=== PATIENT | female | born 1995 | race Caucasian/White ===

== ENCOUNTER 2018-09-29 09:44 | Emergency (ER) | payer MEDICAID ==
[~2018-09-29] VITALS: Ht 147.3 cm; Wt 88.8 kg
[~2018-09-29 09:44] MED LIST: BACDS PO; CIP500T PO; HYDR-4383 PO; MACROBID PO; NITR-60 PO; NITR100C6 PO; NO HOME MEDS; PHEN-716 PO; PHEN-786 PO; RIFA300C4 PO; ZOF4T PO
[2018-09-29 09:57] VITALS: BP 136/77
[2018-09-29] MEDS ORDERED: HYDROcodone/acetaminophen 10/325mg tab PO ONE (12:45)
[2018-09-29] MEDS ORDERED: HYDR-3965 PO (12:51)
== END 2018-09-29 14:11 | disposition home or self-care (01) ==
LOC: ER 09:44
DX: S62.304A Unspecified fracture of fourth metacarpal bone, right hand, initial encounter for closed fracture (principal); R07.81 Pleurodynia; M25.511 Pain in right shoulder; Z98.890 Other specified postprocedural states; Z91.040 Latex allergy status; Z88.1 Allergy status to other antibiotic agents; Z88.8 Allergy status to other drugs, medicaments and biological substances; Z79.2 Long term (current) use of antibiotics; Z79.899 Other long term (current) drug therapy; W18.39XA Other fall on same level, initial encounter; Y93.89 Activity, other specified; Y92.89 Other specified places as the place of occurrence of the external cause; Y99.8 Other external cause status
CPT/HCPCS: 29125; 73030; 73110; 99283; 99284

== ENCOUNTER 2018-10-05 21:43 | Emergency (ER) | payer MEDICAID ==
[~2018-10-05] VITALS: Ht 147.3 cm; Wt 89.9 kg
[~2018-10-05 21:43] MED LIST changes: +HYDR-3965 PO
[2018-10-05] MEDS ORDERED: HYDROcodone/acetaminophen 10/325mg tab PO ONE (22:00)
[2018-10-05] MEDS ORDERED: IBUP-1984 PO (22:48)
[2018-10-05] MEDS ORDERED: HYDR-3965 PO (22:48)
[2018-10-05 23:31] VITALS: BP 140/69
== END 2018-10-05 23:36 | disposition home or self-care (01) ==
LOC: ER 21:44
DX: S62.394D Other fracture of fourth metacarpal bone, right hand, subsequent encounter for fracture with routine healing (principal); S60.031D Contusion of right middle finger without damage to nail, subsequent encounter; Z88.8 Allergy status to other drugs, medicaments and biological substances; Z88.1 Allergy status to other antibiotic agents; Z91.040 Latex allergy status; Z79.899 Other long term (current) drug therapy; Z98.890 Other specified postprocedural states; X58.XXXD Exposure to other specified factors, subsequent encounter
CPT/HCPCS: 29125; 99284

== ENCOUNTER 2018-10-17 14:53 | Outpatient (CLI) | payer MEDICAID | END 2018-10-17 16:25 | disposition home or self-care (01) | LOC: ORTHO 14:53 | PROVIDERS: ATTEND Orthopaedic Surgery | DX: S62.394D Other fracture of fourth metacarpal bone, right hand, subsequent encounter for fracture with routine healing (principal); X58.XXXD Exposure to other specified factors, subsequent encounter | CPT/HCPCS: 73130; G0463 ==

== ENCOUNTER 2018-11-14 15:21 | Outpatient (CLI) | payer MEDICAID ==
[~2018-11-14 15:21] MED LIST changes: -HYDR-3965 PO
== END 2018-11-14 16:21 | disposition home or self-care (01) ==
LOC: ORTHO 15:21
PROVIDERS: ATTEND Orthopaedic Surgery
DX: S62.304D Unspecified fracture of fourth metacarpal bone, right hand, subsequent encounter for fracture with routine healing (principal); X58.XXXD Exposure to other specified factors, subsequent encounter
CPT/HCPCS: 73130; G0463

== ENCOUNTER 2019-01-16 14:51 | Outpatient (CLI) | payer MEDICAID | END 2019-01-16 16:00 | disposition home or self-care (01) | LOC: ORTHO 14:51 | PROVIDERS: ATTEND Orthopaedic Surgery | DX: M79.641 Pain in right hand (principal); I10 Essential (primary) hypertension; Z87.81 Personal history of (healed) traumatic fracture | CPT/HCPCS: 73130; G0463 ==

== ENCOUNTER 2019-08-13 18:38 | Emergency (ER) | payer MEDICAID ==
[~2019-08-13] VITALS: Ht 149.9 cm; Wt 86.3 kg
[2019-08-13 19:38] VITALS: BP 152/95
== END 2019-08-13 19:15 | disposition home or self-care (01) ==
LOC: ER 18:39
DX: R50.9 Fever, unspecified (principal); Z20.828 Contact with and (suspected) exposure to other viral communicable diseases; R05 Cough; R06.02 Shortness of breath; Z98.890 Other specified postprocedural states; Z91.040 Latex allergy status; Z88.8 Allergy status to other drugs, medicaments and biological substances; Z88.1 Allergy status to other antibiotic agents; Z79.2 Long term (current) use of antibiotics; Z79.899 Other long term (current) drug therapy
CPT/HCPCS: 99281

== ENCOUNTER 2020-08-07 23:08 | Emergency (ER) | payer MEDICAID ==
[~2020-08-07] VITALS: Ht 149.9 cm; Wt 81.4 kg
[2020-08-07 23:41] LABS: CLARITY,URINE CLOUDY (Clear); COLOR,URINE YELLOW (Yellow); GLUCOSE, URINE 250 mg/dl (Neg); KETONES,URINE NEGATIVE (Neg); LEUKOCYTE ESTERASE ,URINE NEGATIVE (Neg); NITRITES, URINE NEGATIVE (Neg); OCCULT BLOOD,URINE TRACE-INTACT (Neg); PROTEIN,URINE 100 mg/dl (Neg); UROBILINOGEN,URINE 0.2 E.U/dL (0.2-1.0)
[2020-08-07 23:46] LABS: URINE HCG NEGATIVE (NEG)
[2020-08-07 23:49] LABS: BASOPHILS # (AUTO) 0.1 X10'3 (0-0.2); BASOPHILS % (AUTO) 0.6 % (0-1); EOSINOPHILS # (AUTO) 0.1 X10'3 (0-0.9); EOSINOPHILS % (AUTO) 1.2 % (0-6); HEMATOCRIT 40.9 % (35.0-45.0); HEMOGLOBIN 13.9 g/dl (12.0-16.0); LYMPHOCYTES # (AUTO) 1.7 X10'3 (1.1-4.8); LYMPHOCYTES % (AUTO) 15.9 % (21-51); MEAN CORPUSCULAR HEMOGLOBIN 30.1 PG (27.0-31.0); MEAN CORPUSCULAR HGB CONC 34.1 g/dL (33.0-36.5); MEAN CORPUSCULAR VOLUME 88.3 FL (78-98); MEAN PLATELET VOLUME 7.2 FL (7.4-10.4); MONOCYTES # (AUTO) 0.5 X10'3 (0-0.9); MONOCYTES % (AUTO) 4.3 % (2-12); NEUTROPHILS # (AUTO) 8.2 X10'3 (1.8-7.7); PLATELET COUNT 424 X10'3 (140-440); RED BLOOD COUNT 4.63 X10'6 (4.20-5.60); WHITE BLOOD COUNT 10.5 X10'3 (4.5-11.0)
[2020-08-07 23:50] LABS: UA COLLECTION TYPE OTHER
[2020-08-07 23:51] LABS: RBC,URINE 0-2 /HPF (0-2)
[2020-08-07 23:52] LABS: BACTERIA,URINE FEW /HPF (Neg); MUCUS STRANDS MODERATE /LPF (Neg); SQUAMOUS EPITHELIAL CELL,UR NONE SEEN /LPF (FEW); WBC CLUMPS,URINE FEW /HPF (NEGATIVE)
[2020-08-07 23:52] LABS: ALANINE AMINOTRANSFERASE 24 U/L (12-78); ALBUMIN 3.6 G/DL (3.4-5.0); ALBUMIN/GLOBULIN RATIO 0.8 (1.1-1.5); ALKALINE PHOSPHATASE 65 IU/L (46-116); ANION GAP 9 (8-16); ASPARTATE AMINO TRANSFERASE 18 U/L (10-37); BILIRUBIN,TOTAL 0.2 MG/DL (0.1-1.0); BLOOD UREA NITROGEN 16 MG/DL (7-18); BUN/CREATININE RATIO 18.4 (6.6-38.0); CHLORIDE 105 MMOL/L (99-107); CREATININE 0.87 MG/DL (0.40-0.90); GLUCOSE 197 MG/DL (70-104); LIPASE 114 U/L (73-393); POTASSIUM 3.7 MMOL/L (3.5-5.1); SODIUM 140 MMOL/L (135-145); TOTAL PROTEIN 8.4 G/DL (6.4-8.2); eGFR 79 ML/MIN
[2020-08-08 01:15] VITALS: BP 127/72
== END 2020-08-08 01:16 | disposition home or self-care (01) ==
LOC: ER 23:09
DX: R10.30 Lower abdominal pain, unspecified (principal); R11.2 Nausea with vomiting, unspecified; Z87.440 Personal history of urinary (tract) infections; Z98.890 Other specified postprocedural states; Z88.8 Allergy status to other drugs, medicaments and biological substances; Z88.1 Allergy status to other antibiotic agents; Z91.040 Latex allergy status; Z79.2 Long term (current) use of antibiotics; Z79.899 Other long term (current) drug therapy
CPT/HCPCS: 36415; 80053; 81001; 81025; 83690; 85025; 87077; 87088; 87186; 99283

== ENCOUNTER 2022-05-23 14:42 | Emergency (ER) | payer MEDICAID ==
[~2022-05-23] VITALS: Ht 149.9 cm; Wt 81.8 kg
[~2022-05-23 14:42] MED LIST changes: -RIFA300C4 PO; +RIFA300C9 PO
[2022-05-23 14:59] VITALS: BP 167/91
[2022-05-23 15:31] LABS: BASOPHILS # (AUTO) 0.1 X10'3 (0-0.2); BASOPHILS % (AUTO) 0.9 % (0-1); EOSINOPHILS # (AUTO) 0.2 X10'3 (0-0.9); EOSINOPHILS % (AUTO) 2.6 % (0-6); HEMATOCRIT 39.8 % (35.0-45.0); HEMOGLOBIN 13.7 g/dl (12.0-16.0); LYMPHOCYTES # (AUTO) 2.1 X10'3 (1.1-4.8); LYMPHOCYTES % (AUTO) 22.2 % (21-51); MEAN CORPUSCULAR HEMOGLOBIN 31.2 PG (27.0-31.0); MEAN CORPUSCULAR HGB CONC 34.3 g/dL (33.0-36.5); MEAN CORPUSCULAR VOLUME 90.8 FL (78-98); MEAN PLATELET VOLUME 7.5 FL (7.4-10.4); MONOCYTES # (AUTO) 0.4 X10'3 (0-0.9); NEUTROPHILS # (AUTO) 6.5 X10'3 (1.8-7.7); NEUTROPHILS % (AUTO) 70.3 % (42-75); PLATELET COUNT 298 X10'3 (140-440); RED BLOOD COUNT 4.39 X10'6 (4.20-5.60); WHITE BLOOD COUNT 9.3 X10'3 (4.5-11.0)
[2022-05-23 15:43] LABS: ALANINE AMINOTRANSFERASE 27 U/L (12-78); ALBUMIN 3.6 G/DL (3.4-5.0); ALBUMIN/GLOBULIN RATIO 0.8 (1.1-1.5); ALKALINE PHOSPHATASE 78 IU/L (46-116); ANION GAP 17 (8-16); ASPARTATE AMINO TRANSFERASE 25 U/L (10-37); BILIRUBIN,TOTAL 0.2 MG/DL (0.1-1.0); BLOOD UREA NITROGEN 12 MG/DL (7-18); CALCIUM 9.4 MG/DL (8.5-10.1); CHLORIDE 102 MMOL/L (99-107); CREATININE 0.86 MG/DL (0.40-0.90); GLUCOSE 273 MG/DL (70-104); POTASSIUM 3.6 MMOL/L (3.5-5.1); SODIUM 140 MMOL/L (135-145); TOTAL CARBON DIOXIDE 21.4 MMOL/L (24-32); TOTAL PROTEIN 8.2 G/DL (6.4-8.2); eGFR 79 ML/MIN
== END 2022-05-23 22:18 | disposition left against medical advice (07) ==
LOC: ER 14:43
DX: R42 Dizziness and giddiness (principal); Z53.21 Procedure and treatment not carried out due to patient leaving prior to being seen by health care provider
CPT/HCPCS: 36415; 71045; 80053; 83880; 84484; 85025; 93005; 99281

== ENCOUNTER 2022-07-02 15:06 | Emergency (ER) | payer MEDICAID ==
[~2022-07-02] VITALS: Ht 149.9 cm; Wt 79.1 kg
[2022-07-02 15:34] LABS: BASOPHILS # (AUTO) 0.1 X10'3 (0-0.2); BASOPHILS % (AUTO) 0.4 % (0-1); EOSINOPHILS # (AUTO) 0.1 X10'3 (0-0.9); EOSINOPHILS % (AUTO) 0.5 % (0-6); HEMATOCRIT 41.8 % (35.0-45.0); HEMOGLOBIN 14.1 g/dl (12.0-16.0); LYMPHOCYTES # (AUTO) 1.7 X10'3 (1.1-4.8); LYMPHOCYTES % (AUTO) 13.9 % (21-51); MEAN CORPUSCULAR HEMOGLOBIN 30.3 PG (27.0-31.0); MEAN CORPUSCULAR HGB CONC 33.8 g/dL (33.0-36.5); MEAN CORPUSCULAR VOLUME 89.7 FL (78-98); MEAN PLATELET VOLUME 7.2 FL (7.4-10.4); MONOCYTES # (AUTO) 0.4 X10'3 (0-0.9); MONOCYTES % (AUTO) 3.4 % (2-12); NEUTROPHILS # (AUTO) 9.9 X10'3 (1.8-7.7); NEUTROPHILS % (AUTO) 81.8 % (42-75); PLATELET COUNT 396 X10'3 (140-440); RED BLOOD COUNT 4.66 X10'6 (4.20-5.60); RED CELL DISTRIBUTION WIDTH 12.8 % (11.5-14.5); WHITE BLOOD COUNT 12.2 X10'3 (4.5-11.0)
[2022-07-02 16:11] LABS: ALANINE AMINOTRANSFERASE 34 U/L (12-78); ALBUMIN 4.1 G/DL (3.4-5.0); ALBUMIN/GLOBULIN RATIO 0.9 (1.1-1.5); ALKALINE PHOSPHATASE 92 IU/L (46-116); ANION GAP 13 (8-16); ASPARTATE AMINO TRANSFERASE 19 U/L (10-37); BILIRUBIN,TOTAL 0.3 MG/DL (0.1-1.0); BLOOD UREA NITROGEN 17 MG/DL (7-18); BUN/CREATININE RATIO 17.2 (10.0-20.0); CALCIUM 9.4 MG/DL (8.5-10.1); CHLORIDE 101 MMOL/L (99-107); CREATININE 0.99 MG/DL (0.40-0.90); GLUCOSE 128 MG/DL (70-104); MAGNESIUM 1.5 MG/DL (1.5-2.4); POTASSIUM 3.3 MMOL/L (3.5-5.1); SODIUM 136 MMOL/L (135-145); TOTAL CARBON DIOXIDE 22.2 MMOL/L (24-32); TOTAL PROTEIN 8.6 G/DL (6.4-8.2); eGFR 67 ML/MIN
[2022-07-02 18:32] LABS: D-DIMER < 0.19 MG/L FEU (0-0.50)
[2022-07-02] MEDS ORDERED: potassium Cl 20 mEq SR tablet PO ONE (18:55)
[2022-07-02 19:47] VITALS: BP 118/78
== END 2022-07-02 19:50 | disposition home or self-care (01) ==
LOC: ER 15:06
DX: R07.89 Other chest pain (principal); Z91.040 Latex allergy status; Z88.1 Allergy status to other antibiotic agents; Z88.8 Allergy status to other drugs, medicaments and biological substances
CPT/HCPCS: 36415; 71045; 80053; 83735; 83880; 84484; 85025; 85379; 93005; 99285

== ENCOUNTER 2022-07-25 11:56 | Emergency (ER) | payer MEDICAID ==
[~2022-07-25] VITALS: Ht 149.9 cm; Wt 80.5 kg
[2022-07-25 12:03] VITALS: BP 152/80
[2022-07-25] MEDS ORDERED: IBUP-1986 PO (13:12)
== END 2022-07-25 13:41 | disposition home or self-care (01) ==
LOC: ER 11:56
DX: N94.6 Dysmenorrhea, unspecified (principal)
CPT/HCPCS: 99282

== ENCOUNTER 2023-05-05 20:38 | Emergency (ER) | payer MEDICAID ==
[~2023-05-05] VITALS: Ht 149.9 cm; Wt 73.6 kg
[~2023-05-05 20:38] MED LIST changes: +IBUP-1986 PO
[2023-05-05 20:55] VITALS: BP 145/74; PULSE 78; RESP 16; TEMP 98.2; O2SAT 100
[2023-05-05] MEDS: proparacaine 0.5% ophthalmic drops 15ml RIGHTEYE ONE (21:32)
== END 2023-05-05 21:42 | disposition home or self-care (01) ==
LOC: ER 20:39
DX: T15.91XA Foreign body on external eye, part unspecified, right eye, initial encounter (principal); Z98.890 Other specified postprocedural states; Z91.040 Latex allergy status; Z88.1 Allergy status to other antibiotic agents; Z88.8 Allergy status to other drugs, medicaments and biological substances; Z79.899 Other long term (current) drug therapy; Z79.1 Long term (current) use of non-steroidal anti-inflammatories (NSAID); Z79.2 Long term (current) use of antibiotics; W44.8XXA Other foreign body entering into or through a natural orifice, initial encounter; Y93.89 Activity, other specified; Y92.89 Other specified places as the place of occurrence of the external cause; Y99.8 Other external cause status
CPT/HCPCS: 65222; 99284

== ENCOUNTER 2023-05-29 16:46 | Emergency (ER) | payer MEDICAID ==
[~2023-05-29] VITALS: Ht 149.9 cm; Wt 72.4 kg
[2023-05-29 17:03] VITALS: BP 152/82; PULSE 97; RESP 16; TEMP 98.2; O2SAT 100
== END 2023-05-29 18:57 | disposition home or self-care (01) ==
LOC: ER 16:47
DX: M79.605 Pain in left leg (principal); M79.604 Pain in right leg
CPT/HCPCS: 72170; 99283

== ENCOUNTER 2023-06-15 14:06 | Outpatient (CLI) | payer MEDICAID ==
[~2023-06-15 14:06] MED LIST changes: +RIFA300C65 PO; -RIFA300C9 PO
== END 2023-06-15 23:59 | disposition home or self-care (01) ==
LOC: RAD 14:06
PROVIDERS: ATTEND Family Medicine
DX: T71.193A Asphyxiation due to mechanical threat to breathing due to other causes, assault, initial encounter (principal); X58.XXXA Exposure to other specified factors, initial encounter
CPT/HCPCS: 72110

== ENCOUNTER 2023-06-24 07:58 | Outpatient (CLI) | payer MEDICAID ==
[2023-06-24] MEDS ORDERED: GADOTERATE MEGLUMINE 7.5 MMOL/15 ML VIAL IV ONE (15:52)
== END 2023-06-24 23:59 | disposition home or self-care (01) ==
LOC: MRI 07:58
PROVIDERS: ATTEND Student in an Organized Health Care Education/Training Program
DX: R42 Dizziness and giddiness (principal); T71.193A Asphyxiation due to mechanical threat to breathing due to other causes, assault, initial encounter; R41.3 Other amnesia; Y93.89 Activity, other specified; Y92.89 Other specified places as the place of occurrence of the external cause; Y99.8 Other external cause status
CPT/HCPCS: 70553; A9575

== ENCOUNTER 2023-06-29 08:42 | Outpatient (CLI) | payer MEDICAID ==
[2023-06-29] MEDS ORDERED: iohexol 350MG/ML 100ml bottle IV ONE (09:01)
== END 2023-06-29 23:59 | disposition home or self-care (01) ==
LOC: RAD 08:42
PROVIDERS: ATTEND Student in an Organized Health Care Education/Training Program
DX: R42 Dizziness and giddiness (principal)
CPT/HCPCS: 70498; J3490; Q9967

== ENCOUNTER 2025-01-17 09:12 | Emergency (ER) | payer MEDICAID ==
[~2025-01-17] VITALS: Ht 154.9 cm; Wt 61.1 kg
[2025-01-17 10:12] LABS: LEUKOCYTE ESTERASE ,URINE MODERATE (Neg); NITRITES, URINE NEGATIVE (Neg); OCCULT BLOOD,URINE SMALL (Neg)
[2025-01-17 10:22] LABS: MEAN PLATELET VOLUME 7.7 FL (7.4-10.4); RED CELL DISTRIBUTION WIDTH 12.7 % (11.5-14.5)
[2025-01-17 10:26] LABS: UA COLLECTION TYPE NON-SPECIFIED
[2025-01-17 10:27] LABS: SQUAMOUS EPITHELIAL CELL,UR FEW /LPF (FEW)
[2025-01-17 10:36] LABS: CREATININE 2.46 MG/DL (0.40-0.90); TOTAL CARBON DIOXIDE 23.9 MMOL/L (24-32); eCRCL 25 ML/MIN; eGFR 23 ML/MIN
[2025-01-17 11:12] LABS: HCG SERUM QL NEGATIVE
[2025-01-17] MEDS ORDERED: CefTRIAXone 2gm/NS 100ml IVPB 50 ML IV ONE (11:15)
[2025-01-17] MEDS: normal saline 1000ML IV soln IVB ONE (11:36)
[2025-01-17] MEDS: CefTRIAXone 2gm/D5W 50ml BAG 50 ML IV ONE (11:45)
[2025-01-17 11:56] LABS: PRO BRAIN NATRIURETIC PEPTIDE < 30 PG/ML (0-125)
[2025-01-17] MEDS: diatr meglu/diatrizoate 30ml oral sol.-(3 dose) bottle PO SCH (12:00)
--- NOTE | 2025-01-17 12:14 | ELECTROCARDIOGRAPH REPORT ---
[facility] Test Date: 2025-01-17 Test Time: 12:11:16 Pat Name: LOGAN BARRETT Department: [facility]- Patient ID: [id number] Room: Gender: F [employer]: : 1995 Requested By: ELVIRA MCCORMICK Order Number: [id number] Reading MD: Dr. DARNELL Mansfield Measurements Intervals [place] Rate: 98 P: 16 HI: 133 QRS: 71 QRSD: 95 T: 269 QT: 318 QTc: 406 Interpretive Statements Sinus rhythm Borderline repolarization abnormality Electronically Signed On 01-18-2025 16:52:[address] DARNELL Mansfield Please click the below link to view image of tracing.
--- NOTE | 2025-01-17 12:20 | Physician Documentation ---
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 This is accompanied by generalized abdominal pain. The particular palliating or aggravating factors. She had attempted to treat it with the Zofran at home without any success. Secondary, she complains of shortness a breath on exertion, which is new and unusual for her. She states that she has trouble walking 5 ft without Arnold out of breath. This is abnormal for her. She does report some mild chest discomfort. It exacerbated by vomiting. Lastly, she reports generalized headache, not the worst of life. No particular palliating or aggravating factors. Not a thunderclap headache. Did not treat the headache due to nausea or vomiting in the inability to hold down medications. She also reports spinning sensation. No concern for tobacco, alcohol or illicit substances use. Medication Reconciliation Allergies: Coded Allergies: latex (Unverified Allergy, Severe, HIVES, SWELLING, 01/17/25) buprenorphine (Verified Allergy, Unknown, 01/17/25) vancomycin (Unverified Allergy, Unknown, 01/17/25) Scheduled Ciprofloxacin Hcl* (Cipro*), 500 MG PO BID Ibuprofen (Ibuprofen), 1 TAB PO Q8H Nitrofurantoin Monohyd/M-Cryst (Macrobid 100 mg Capsule), 1 CAP PO BID Nitrofurantoin/Nitrofuran Mac (Macrobid 100 Mg Capsule), 100 MG PO BID Nitrofurantoin/Nitrofuran Mac* (Macrobid*), 100 MG PO BID Ondansetron ODT* (Zofran ODT*), 8 MG PO Q6H Phenazopyridine HCl (Pyridium), 1 TAB PO TID Phenazopyridine Hcl (Pyridium tablet), 100 MG PO TIDWM Phenazopyridine Hcl (Pyridium tablet), MG PO PRN, (Reported) Phenazopyridine Hcl (Pyridium tablet), 200 MG PO TIDWM Rifampin (Rifampin), 1 CAP PO BID Sulfamethoxazole/Trimethoprim DS* (Bactrim DS Tab*), 1 TAB PO BID, (Reported) Scheduled PRN Hydrocodone/Acetaminophen ([place] 5-325 Tablet), 1 TABLET PO TID PRN for pain Phenazopyridine Hcl (Pyridium tablet), 2 TAB PO Q8H PRN for pain Miscellaneous Medications Home Med List (No Home Medications), (Reported) Past Medical History Past Medical History: *RENAL/*, UTI Past Surgical History: other Other Past Surgical History: urostomy, vesicostomy, subarachnoid shunt Alcohol Use: None Lives with: Mother Lives In: Home Review of Systems ROS 10 point review of systems was performed and unless noted above in HPI is negative for acute process/complaint. Physical Exam Vital Signs: Temperature: 97.5, Source: Oral, Heart Rate: 107, Respiratory Rate: 16, BP: 107/69, Pulse Oximetry: 99, Weight: 61.100 Oxygen Flow Rate: 0 Physical Exam GENERAL: Awake, alert, oriented, GCS 15, no apparent distress, non-toxic appearing, answers questions, follows commands appropriately. Examined in bed 6. HEENT: Atraumatic, normocephalic, pupils equal, extraocular muscles intact, sclerae anicteric, mucus membranes moist, oropharynx is clear, no stridor. NECK: supple, full active range of motion, trachea midline, no thyromegaly, no lymphadenopathy, no JVD. CARDIOVASCULAR: Tachycardic and regular rate/rhythm, no murmurs/gallops/rubs, Pulses are 2+ in all extremities and symmetric. Capillary refill less than 2 seconds. PULMONARY: Nonlabored, good air movement ,no respiratory distress, speaking in full sentences, clear to auscultation bilaterally, no wheezing, no ronchi, no rales, no accessory muscle use. GASTROINTESTINAL: Soft, upper abdominal tenderness to palpation without guarding or rebound reproducing chief complaint, non-distended, normal active bowel sounds, no organomegaly, no pulsatile masses, no CVA tenderness. NEUROLOGIC: Lucid with normal mental status. Normal facial symmetry. Moves all extremities symmetrically and with purpose. No truncal ataxia. Speech is fluid without evidence of dysarthria or aphasia, no focal deficits appreciated. MUSCULOSKELETAL: There is full range of motion of all extremities. There is no joint pain or joint swelling or joint erythema. There is no muscle pain or tenderness or swelling. EXTREMITIES: warm, well-perfused, no cyanosis, no clubbing, no edema, no acute deformities. Skin: warm, dry, no rashes or lesions, no jaundice, no petechiae orpurpura. No ecchymosis. PSYCHIATRIC: Normal affect, normal insight, normal concentration. Focused exam: [] Progress Results/Orders Results/Orders Orders - PEDRITO MCCORMICK DO Cult Urine + [place] Ct (01/17/25 10:28) ESR (01/17/25 11:14) Saline Lock (01/17/25 11:14) Hs Troponin I W Calculations (01/17/25 13:14) Diatr Meglu/Diatrizoate 30ml (Gastrograf (01/17/25 11:15) Culture Blood (01/17/25 11:31) Lacticsepsis (01/17/25 11:31) Cta Chest Abdomen Pelvis (01/17/25 11:14) Ct Head (01/17/25 12:08) Acetaminophen 1,000mg/100ml Iv (Ofirmev (01/17/25 14:00) Covid19 Binax Poc Result Entry (01/17/25 12:08) Completed Orders - PEDRITO MCCORMICK DO Cbc/Diff (01/17/25 09:54) BMP (01/17/25 09:54) Lipase (01/17/25 09:54) CMP (01/17/25 09:54) Hcg Serum Ql (01/17/25 10:22) Ua W/Microscopic, Cult If Ind (01/17/25 09:55) Normal Saline 1000ml (0.9% Sodium Chlori (01/17/25 11:15) Ceftriaxone 2gm/Ns 100ml Ivpb (Rocephin (01/17/25 11:15) Hs Troponin I W Calculations (01/17/25 11:14) Prochlorperazine Inj (Compazine Inj) (01/17/25 11:15) Ceftriaxone 2gm/D5w 50ml Bag (Rocephin 2 (01/17/25 11:25) Ceftriaxone 2gm/D5w 50ml Bag (Rocephin 2 (01/17/25 11:24) C-Reactive Protein (01/17/25 10:09) MG (01/17/25 10:09) PBNP (01/17/25 10:09) Ondansetron Inj. (Zofran 4mg/2ml Vial) (01/17/25 12:10) Electrocardiogram (01/17/25 ) Morphine 4mg/Ml Inj. (Morphine Inj.) (01/17/25 12:10) Medications Received in ER Medications (Trade) Dose Ordered Sig/[place] Route PRN Reason Start Time Stop Time Status Last Admin Dose Admin (0.9% sodium chloride (NS) 1000ml IV soln) 1,000 ml ONCE ONCE IVB 01/17/25 11:15 01/17/25 11:19 DC 01/17/25 11:36 1,000 ML (Compazine inj) 10 mg ONCE ONCE IV 01/17/25 11:15 01/17/25 11:19 DC 01/17/25 11:35 10 MG Ceftriaxone Sodium/Dextrose 50 ml @ 100 mls/hr ONCE ONCE IV 01/17/25 11:25 01/17/25 11:54 DC 01/17/25 11:45 100 MLS/HR Vital Signs 01/17/25 01/17/25 01/17/25 01/17/25 09:44 10:51 11:01 11:48 Temp 97.3 97.5 97.5 Pulse 117 98 107 Resp 18 16 B/P (MAP) 110/73 107/77 (87) 107/69 (82) Pulse Ox 100 96 99 O2 Flow Rate 0 0 Laboratory Tests Test 01/17/25 09:55 01/17/25 10:09 01/17/25 10:50 01/17/25 11:45 Urine Specimen Description Non-specified Urine Color Yellow Urine Clarity Cloudy Urine pH 6.0 Urine Specific [place] 1.025 Urine Protein 100 H Urine Glucose (UA) Negative Urine Ketones Negative Urine Occult Blood Small Urine Nitrite Negative Urine Bilirubin Small Urine Urobilinogen 0.2 Urine Leukocyte Esterase Moderate H Urine RBC 3-10 Urine WBC Tntc H Urine Squamous Epithelial Cells Few Urine Bacteria 3+ Urine Culture Indicated Indicated Volume Urine Centrifuged 10 ml Urine Comment White Blood Count 11.5 H Red Blood Count 5.86 H Hemoglobin 18.2 *H Hematocrit 52.9 H Mean Corpuscular Volume 90.4 Mean Corpuscular Hemoglobin 31.2 H Mean Corpuscular Hemoglobin Concent 34.5 Red Cell Distribution Width 12.7 Platelet Count 424 Mean Platelet Volume 7.7 Neutrophils (%) (Auto) 73.7 Lymphocytes (%) (Auto) 14.8 L Monocytes (%) (Auto) 6.6 Eosinophils (%) (Auto) 4.7 Basophils (%) (Auto) 0.2 Neutrophils # (Auto) 8.5 H Lymphocytes # (Auto) 1.7 Monocytes # (Auto) 0.8 Eosinophils # (Auto) 0.5 Basophils # (Auto) 0.0 CBC Comment Sodium Level 132 L Potassium Level 4.6 Chloride Level 95 L Carbon Dioxide Level 23.9 L Anion Gap 13 Blood Urea Nitrogen 51 H Creatinine 2.46 H Estimated GFR/1.73 m2 23 BUN/Creatinine Ratio 20.7 H Glucose Level 152 H Calcium Level 9.8 Magnesium Level 1.8 Total Bilirubin 1.1 H Aspartate Amino Transf (AST/SGOT) 21 Alanine Aminotransferase (ALT/SGPT) 22 Alkaline Phosphatase 117 H Troponin I High Sensitivity 12 C-Reactive Protein 2.84 H Pro-B-Type Natriuretic Peptide < 30 Total Protein 11.1 H Albumin 5.1 H Globulin 6.0 H Albumin/Globulin Ratio 0.9 L Lipase 50 Chemistry Comments Human Chorionic Gonadotropin, Qual Negative Microbiology Date/Time Source Procedure Growth Status 01/17/25 10:28 Urine Nonspecified Urine Culture - Preliminary Culture received. Resulted EKG/XRAY/CT/US/VASC/MRI EKG : Additional Comment EKG was obtained and interpreted by myself shows sinus rhythm of 98, normal MI interval, narrow QRS, no QT prolongation, QTC is actually for a six, normal axis, no STEMI, T-wave inversion in two, three, AVF as well as V3 through V6. No STEMI. Medical Decision Making Additional information obtaine: old records Findings Facility Status: ED Holds, [facility] process The plan was discussed with the patient, who demonstrates clear understanding of the plan and is in agreement with the plan unless otherwise noted in the chart. All questions have been answered, all concerns were addressed unless otherwise documented. I was available throughout their ED stay for frequent reassessment and questions. Differential Diagnoses (considered and possible or likely): [With a respect to her abdominal pain, Differential diagnosis considered includes acute appendicitis, acute cholecystitis, pancreatitis, gastritis, PUD, diverticulitis, mesenteric ischemia, abdominal aortic aneurysm, bowel obstruction, enteritis, colitis, fecal impaction, volvulus, IBS, inflammatory bowel disease, specific food intolerance, peritonitis, perforated viscous, malignancy, UTI, abscess, and abdominal pain NOS. Pelvic source of pain was also considered including endometritis, dysmenorrhea, ovarian cyst, ovarian torsion, PID, TOA, cervicitis, vaginitis, or uterine fibroid. History, physical exam, and workup exclude many of the more serious causes listed above. With respect to shortness a breath differential includes but not limited to COVID, influenza, RSV, upper respiratory infection in the top of the viruses, pneumonia, CHF, ACS, PE. Less likely pneumothorax. With respect to dizziness and headache differential includes but not limited to labyrinthitis, tension headache, vertigo, neuritis, less likely migraine, less likely cluster headache, less likely subdural subarachnoid. Shunt malfunction had also been considered. Additionally I have considered hypoglycemia, dehydration, electrolyte derangement as a result of significantly increased ileostomy output.] ??Differential Diagnoses (considered and unlikely, not requiring evaluation currently): [No evidence of trauma] MDM Data Please see HPI for the following: Independent Historians and external Records Review. Historian: [Patient] Independent Historians: ?[Record review] Medication Management: [Reviewed medication list] Social History and determinants: [Reviewed] Please see the body of the note for the following: Any independent interpretations of ECG, imaging studies. All vitals signs/haemodynamics, ordered tests were independently reviewed and interpreted by myself. Nursing triage complaint and vitals reviewed, additional nursing notes were reviewed as available and I agree unless otherwise noted or documented in contradiction in the chart Vital Signs: Independently reviewed Labs: Independently interpreted Imaging: Independently interpreted Old Medical Records: Independently reviewed, see HPI for relevant summary and information Pulse Oximetry: [96%] interpreted as [normal on room air] by me [[employer]: Tachycardic Rate, Regular rhythm, no ectopy, sinus tachycardia. reviewed and interpreted by me] Additionally notably showing: [Critical hemodynamics reviewed. She is not febrile, tachycardic, improved with the fluids, blood pressure soft but no true hypotension, good map. No evidence of respiratory distress. CBC shows hemo concentration, no leukocytosis, normal platelets. Normal ESR. Chemistry notable for very mild hyponatremia. There is evidence of ASTRID. CRP is elevated. She is not . Lactic acid is normal. Both troponins are negative. BNP is undetectable. Ethanol is negative. UA is positive for UTI. COVID is negative. Head CT was obtained to evaluate for headache. No acute intracranial abnormality. CT of the chest, abdomen and pelvis was obtained showing no evidence of PE. No dissection. Incidental finding of complex left ovarian lesion. There is also a right adnexal/presacral lesion as well. ] Tests considered but not ordered include: [Not applicable, exhaustive workup was obtained] Social Determinants of Health Impact: Patient was [facility] in [facility] [place] access to healthcare due to below par ratio of patient to medical providers. [] Comorbid Conditions Impacting Present Evaluation and Care/Treatment: [Multiple, see list] Management Discussions with other Healthcare Providers: [Hospitalist regarding admission] Treatment and Disposition Medication Management (Given or considered): [Fluids, nausea management]. See EMR for details Consideration for Hospitalization/Escalation/Deescalation of Care: Admission for observation and appears to be necessary for further management of her acute kidney injury and intractable nausea vomiting. ?ED Course:?[No significant clinical improvement or deterioration] ?Shared decision making:?[] Code status:?FULL Please see the full Electronic Medical Record for full details of nursing documentation, medications list, other records of complete past medical history and conditions, vital signs, laboratory studies, and any radiologic study interpretations by radiologists. Portions of this note were completed using [employer] dictation software and as a result there may exist minor errors in spelling. I have reviewed elements of past family and social history and agree as included in note. Differential Dx:Considerations: Other (See body of main note for differential diagnosis) Departure Disposition: 09 ADMITTED INPATIENT Impression: Primary Impression: Intractable nausea and vomiting Additional Impressions: Abdominal pain Diarrhea Dehydration Abdominal or pelvic swelling, mass, or lump, left lower quadrant Condition: Fair Signature Scribe Signature: No scribe Attestation: Date: Jan 17, 2025 Time: 17:02 This note accurately reflects clinical decisions, work performed by myself, Pedrito Mccormick, PEDRITO ARIAS DO Jan 17, 2025 12:20
[2025-01-17] MEDS: morphine 4 MG/ML inj SYRINge IV ONE (12:21)
[2025-01-17] MEDS: ondansetron/PF 4mg/2ml inj IV ONE (12:25)
[2025-01-17] MEDS: acetaminophen 1,000mg/100ml IV 100 ML IV SCH (12:37)
--- NOTE | 2025-01-17 14:37 | RADIOLOGY REPORT ---
EXAM: CT CT HEAD INDICATION: LAZARO, s/p shunt TECHNIQUE: CT of the head without intravenous contrast. Radiation Dose Information: CT Dose: CTDI volume is 25 mGy. Dose-length product is 250 mGy*cm The dose indicators for CT are the volume Computed Tomography (CT) Dose Index (CTDIvol) and the Dose Length Product (DLP), and are measured in units of mGy and mGy-cm, respectively. These indicators are not patient dose, but values generated from the CT scanner acquisition factors. The report includes radiation exposure data for exposures received during this examination. COMPARISON: MR MRI HEAD on DOS: 06/24/23 FINDINGS: There is no evidence of acute intracranial hemorrhage, extra-axial collection, mass effect, midline shift, herniation or hydrocephalus. The ventricles, sulci and cisterns are age appropriate. The farr-white differentiation is intact. The visualized paranasal sinuses and mastoid air cells are clear. The surrounding soft tissues and osseous structures are unremarkable. IMPRESSION: No acute intracranial abnormality.
--- NOTE | 2025-01-17 15:25 | RADIOLOGY REPORT ---
Indication: exertional dyspena, new onset Technique: CT axial images of the chest, abdomen and pelvis are obtained with contrast. Coronal and sagittal reformats were obtained. Radiation Dose Information: CTDI volume is 14.4 mGy. Dose-length product is 1059 mGy*cm Comparison: None FINDINGS: No filling defect within the main left and right pulmonary arteries. Segmental and subsegmental branches suboptimally opacified/ characterized. Trachea patent. No pneumothorax. No pulmonary airspace consolidation. Heart normal in size. No mediastinal or hilar lymphadenopathy. The thoracic aorta is normal in caliber without evidence for aneurysmal dilatation/ dissection. No supraclavicular, axillary lymphadenopathy. Adrenal glands, spleen, pancreas and liver unremarkable. No CT evidence for cholelithiasis. Kidneys demonstrate no hydronephrosis. Stomach is partially distended. Small bowel loops are normal in caliber. Left abdominal colostomy. Hemicolectomy. Right abdominal ileostomy. Abdominal aorta normal in caliber.m retroperitoneal 9 mm. Bladder is partially distended. Irregular contour of the bladder wall, possibly representing a neobladder with output into the left ostomy. Left ovarian/ adnexal septated cystic lesion measuring 4.1 cm. Heterogeneous lesion in the right adnexa/ presacral tissues measuring 3.6 x 3.2 cm. No inguinal lymphadenopathy. Ekaw-[id number]-[id number] bilateral sacroiliac degenerative joint disease. There is no aggressive osseous process. IMPRESSION: No evidence for Large pulmonary embolism. No evidence for Thoracic aortic dissection. Postsurgical changes large bowel/ hemicolectomy. Left colostomy. Right abdominal ileostomy. Complex appearing left ovarian / adnexal septated lesion measuring 4.1 cm. Recommend pelvic ultrasound to further evaluate. Heterogeneous lesion in the right adnexa/presacral tissues measuring 3.6 x 3.2 cm. Recommend pelvic ultrasound/pelvic MRI with and without contrast to evaluate. The bladder contour is irregular in morphology. No definitive abnormal bladder wall thickening. This could represent a neobladder without put into the left ostomy. Correlate with surgical history. Other findings as described
[2025-01-17] MEDS: normal saline 1000ml 1,000 ML IV ONE (17:32)
[2025-01-17 17:45] LABS: CREATININE 1.38 MG/DL (0.40-0.90); TOTAL CARBON DIOXIDE 22.4 MMOL/L (24-32); eCRCL 45 ML/MIN; eGFR 45 ML/MIN
[2025-01-17 18:24] LABS: URINE AMPHETAMINE SCREEN NEGATIVE (Neg); URINE BARBITUATE SCREEN NEGATIVE (Neg); URINE BENZODIAZEPINES SCREEN NEGATIVE (Neg); URINE CANNABINOID SCREEN NEGATIVE (Neg); URINE COCAINE SCREEN NEGATIVE (Neg); URINE METHADONE SCREEN NEGATIVE (Neg); URINE OPIATE SCREEN POSITIVE (Neg); URINE PHENCYCLIDINE SCREEN NEGATIVE (Neg)
--- NOTE | 2025-01-17 18:27 | RADIOLOGY REPORT ---
CLINICAL HISTORY: L adnexal mass TECHNIQUE: Ultrasound examination of the female pelvis was performed transabdominally and then endovaginally, in order to better evaluate the uterus. WID: COMPARISON: DI PELVIS,LIMITED 1-2 VIEWS on DOS: 05/29/23 FINDINGS: Anteverted uterus is 4 x 2.6 x 2.8 cm. No myometrial lesions. Endometrium is 2.9 mm. Within the left ovary there is a dilated septated mass measuring 4.8 x 4.4 x 4.9 cm. No significant free fluid. Right ovary measures 2.9 x 1.4 x 1.3 cm. There is a 4.1 x 3.2 cm cystic mass within the right adnexa. Normal color Doppler flow in vascular waveforms are present bilaterally. IMPRESSION: 4.8 cm right adnexal cystic mass without nodularity or hypervascularity. Finding may represent a peritoneal inclusion cyst or other etiology. Recommend pelvic MRI for further assessment. Findings compatible with left hydrosalpinx of unknown etiology.
[2025-01-17 18:46] VITALS: BP 93/63; PULSE 111; RESP 16; TEMP 97.5; O2SAT 96
[2025-01-20] MEDS ORDERED: CIPR-458 PO (09:21)
== END 2025-01-17 18:50 | disposition home or self-care (01) ==
LOC: ER 17:41
DX: R19.00 Intra-abdominal and pelvic swelling, mass and lump, unspecified site (principal); R11.2 Nausea with vomiting, unspecified; R19.7 Diarrhea, unspecified; E86.0 Dehydration; R06.03 Acute respiratory distress; R51.9 Headache, unspecified; Z88.1 Allergy status to other antibiotic agents; Z91.040 Latex allergy status; Z88.8 Allergy status to other drugs, medicaments and biological substances; Z79.899 Other long term (current) drug therapy; Z20.822 Contact with and (suspected) exposure to COVID-19
CPT/HCPCS: 36415; 70450; 71275; 74177; 76830; 80048; 80053; 80305; 80320; 81001; 83605; 83690; 83735; 83880; 84484; 84703; 85025; 85651; 86140; 87040; 87077; 87088; 87186; 87811; 93005; 93976; 96361; 96365; 96368; 96375; 99285; J0131; J0696; J0780; J2270; J2405; J7030; Q9967; Q9963